=== PATIENT | female | born 2000 | race Two or more races ===

== ENCOUNTER → 2024-09-10 | Outpatient (CLI) | payer MEDICAID, SELFPAY ==
[2024-09-10] MEDS: ferumoxytoL (NON-ESRD) 510 MG in SODIUM CHLORIDE 0.9% 100 ML 234 MG IV (10:16)
[2024-09-10 10:24] VITALS: BP 109/67; PULSE 91; RESP 14; TEMP 36.3; O2SAT 98; BMI 27.3
[2024-09-10 11:17] VITALS: BP 110/60; PULSE 80; RESP 15; TEMP 36.3; O2SAT 100
== END | disposition home or self-care (01) ==
PROVIDERS: PCP Family Medicine; Referring Provider Student in an Organized Health Care Education/Training Program; Visit Provider Student in an Organized Health Care Education/Training Program
PROC: (CPT 96365; principal; 2024-09-10 09:00)
DX: O99.013 Anemia complicating pregnancy, third trimester (principal)
CPT/HCPCS: 96365; J7050; Q0138